=== PATIENT | female | born 1950 | race Caucasian/White ===

== ENCOUNTER 2023-10-19 07:24 | Day surgery (SDC) | payer MEDICARE ==
[~2023-10-19 07:24] MED LIST: BETADINE 5% OPHTHALMIC 30 ML OP ONE; NON-FORMULARY ITEM OP ONE; cefUROXime sodium 0.005 GM in Sodium Chloride Flush 30 ML*** 0.5 ML IJ ONE
[2023-10-19] MEDS ORDERED: Lactated Ringers 1,000 ML IV ONE (08:39)
[2023-10-19] MEDS: Lactated Ringers 1,000 ML IV SCH (08:42)
[2023-10-19] MEDS: TETRACAINE 0.5% STERI-UNIT SOL OP ONE ×2 (09:12→09:22)
[2023-10-19] MEDS: Ak-Dilate OPHTHALMIC*** 1.065 ML, Cyclogyl 1% OPHTH SOL 1.065 ML, GATIFLOXACIN 0.5% OPH... OP ONE (09:13)
[2023-10-19 09:18] LABS: ALBUMIN 4.5 g/dL (3.5-5.0); ANION GAP 8.1 MEQ/L (5-15); BILIRUBIN,TOTAL 1.2 mg/dL (0.2-1.3); Calcium 9.5 mg/dL (8.4-10.2); Creatinine 1 0.64 mg/dL (0.52-1.04); EST GLOMERULAR FILTRATION RATE 94.4 ML/MIN; Potassium 4.8 mmol/L (3.5-5.1)
[2023-10-19] MEDS ORDERED: Zofran 4 MG/2 ML VIAL IV PRN (10:00)
[2023-10-19] MEDS ORDERED: Epinephrine Preservative Free 1 MG/ML IJ ONE (11:00)
[2023-10-19] MEDS ORDERED: DIPRIVAN 200 MG/20 ML IV ONE ×2 (12:05→12:25)
[2023-10-19] MEDS ORDERED: ROBINUL ONE (12:06)
[2023-10-19 12:32] VITALS: RESP 16
[2023-10-19] MEDS: ACETAZOLAMIDE 250 MG TABLET PO ONE (12:34)
[2023-10-19 12:47] VITALS: BP 148/84; PULSE 72; TEMP 96.3; O2SAT 98
== END 2023-10-19 12:54 | disposition home or self-care (01) ==
LOC: SDC 07:24
PROVIDERS: ATTEND Ophthalmology
DX: H25.812 Combined forms of age-related cataract, left eye (principal); H40.1131 Primary open-angle glaucoma, bilateral, mild stage; I10 Essential (primary) hypertension
CPT/HCPCS: 36415; 65820; 80053; 93005; 99100; C1780; J0171; J2704; A9270-GY

== ENCOUNTER 2023-11-20 07:16 | Day surgery (SDC) | payer MEDICARE ==
[2023-11-20] MEDS ORDERED: Epinephrine Preservative Free 1 MG/ML IJ ONE (07:17)
[2023-11-20] MEDS ORDERED: cefUROXime sodium 0.005 GM in Sodium Chloride Flush 30 ML*** 0.5 ML IJ ONE (07:30)
[2023-11-20] MEDS ORDERED: BETADINE 5% OPHTHALMIC 30 ML OP ONE (07:30)
[2023-11-20] MEDS ORDERED: NON-FORMULARY ITEM OP ONE (07:30)
[2023-11-20] MEDS ORDERED: Lactated Ringers 1,000 ML IV ONE (09:20)
[2023-11-20] MEDS: Lactated Ringers 1,000 ML IV SCH (09:24)
[2023-11-20] MEDS ORDERED: Zofran 4 MG/2 ML VIAL IV PRN (09:30)
[2023-11-20] MEDS: TETRACAINE 0.5% STERI-UNIT SOL OP ONE ×2 (09:53→10:22)
[2023-11-20] MEDS: Ak-Dilate OPHTHALMIC*** 1.065 ML, Cyclogyl 1% OPHTH SOL 1.065 ML, GATIFLOXACIN 0.5% OPH... OP ONE (09:55)
[2023-11-20] MEDS ORDERED: DIPRIVAN 200 MG/20 ML IV ONE (12:48)
[2023-11-20] MEDS ORDERED: SUBLIMAZE 100 MCG/2 ML ONE (12:49)
[2023-11-20] MEDS ORDERED: Versed 2 MG/2 ML Injection ONE (12:49)
[2023-11-20 13:26] VITALS: RESP 16
[2023-11-20] MEDS: ACETAZOLAMIDE 250 MG TABLET PO ONE (13:26)
[2023-11-20 13:38] VITALS: BP 158/81; PULSE 74; TEMP 97.2; O2SAT 97
== END 2023-11-20 13:50 | disposition home or self-care (01) ==
LOC: SDC 07:16
PROVIDERS: ATTEND Ophthalmology
DX: H40.1111 Primary open-angle glaucoma, right eye, mild stage (principal); H25.811 Combined forms of age-related cataract, right eye
CPT/HCPCS: 65820; C1780; J0171; J2250; J2704; J3010; A9270-GY